=== PATIENT | female | born 1995 | race Caucasian/White ===

== ENCOUNTER 2020-08-24 18:18 | Emergency (ER) | payer BC ==
--- NOTE | 2020-08-24 20:43 | Ultrasound Report ---
PROCEDURE: Duplex Ext Veins Left INDICATIONS: swelling, pain, numbness in leg 3 weeks post op TECHNIQUE: Real-time imaging, as well as color and pulse Doppler interrogation, were performed of the lower extr emity deep veins from the inguinal ligament to the popliteal fossa. COMPARISON: None. FINDINGS: The deep veins are normally compressible, and free of intraluminal thrombus. Color and pu lse Doppler demonstrate normal phasic intraluminal flow. There is normal augmentation response to di stal compression maneuver. 4.3 x 1.6 x 3.8 cm complex fluid collection noted in the anterior left kne e which may represent hematoma. There is a 1.6 x 0.9 x 0.6 cm left popliteal cyst. IMPRESSION: No evidence of deep vein tendinosis involving the left lower extremity. Reviewed by: Ruba Roca MD, PhD on 08/24/2020 8:41 PM PDT Approved by: Ruba Roca MD, PhD on 08/24/2020 8:41 PM PDT Station ID: [id number]
--- NOTE | 2020-08-24 20:57 | ED Physician Documentation ---
History of Present Illness - Stated complaint Stated Complaint: POST OP COMPLICATIONS - Chief complaint Chief Complaint: Ext Problem - History obtained from History obtained from: Patient - Additonal information Additional information: 25-year-old woman with past surgical history of ACL repair 3 weeks ago in [place] presents with left lower leg pain, discoloration of toes and numbness lasting about 45 minutes today. She states that she has had intermittent leg pain over the past week and a half. She also endorses some shortness of breath but she states that it may be related to pain. Denies pleuritic pain, chest pain, cough, calf swelling. She does have mild swelling to the left knee. Denies fevers. She did fly in a plane 8 days ago. Not on oral contraceptive. Non-smoker. Patient is previously healthy and ambulates daily. Review of Systems Ten Systems: 10 systems reviewed and negative Constitutional: denies: Fever Cardiac: denies: Chest pain / pressure Respiratory: reports: Dyspnea. denies: Cough GI: reports: Nausea. denies: Vomiting Musculoskeletal: reports: Extremity pain, Joint pain, Other (knee swelling. no calf swelling) PD PAST MEDICAL HISTORY - Past Medical History Past Medical History: Yes Cardiovascular: None Respiratory: None Endocrine/Autoimmune: None GI: None [employer]ER: None : Chronic bladder infection HEENT: None Psych: None Musculoskeletal: None Derm: None - Past Surgical History Past Surgical History: Yes Ortho: Arthroscopic surgery HEENT: Tonsil/Adenoidectomy - Present Medications Home Medications: Ambulatory Orders Medication Instructions Recorded Confirmed Aspirin [Elk Aspirin] 81 mg PO DAILY 08/24/20 08/24/20 - Allergies Allergies/Adverse Reactions: Allergies Allergy/AdvReac Type Severity Reaction Status Date / Time No Known Drug Allergies Allergy Verified 08/24/20 18:23 - Social History Does the pt smoke?: No Smoking Status: Former smoker Does the pt drink ETOH?: No Does the pt have substance abuse?: No - Immunizations Immunizations are current?: Yes - POLST Patient has POLST: No PD ED PE NORMAL - Vitals Vital signs reviewed: Yes - General General: Alert and oriented X 3, No acute distress, Well developed/nourished - HEENT HEENT: Atraumatic, PERRL, EOMI - Cardiac Cardiac: RRR - Respiratory Respiratory: No respiratory distress, Clear bilaterally - Abdomen Abdomen: Non tender, Non distended - Derm Derm: Normal color, Warm and dry - Extremities Extremities: No deformity, Other (mild L knee swelling. limited ROM L knee. healing well. compartment soft. 2+ BL PT/DP pulses. normal sensation, cap refil, strength to BL LE) Results - Vitals Vitals: Vital Signs - 24 hr 08/24/20 08/24/20 08/24/20 18:24 18:48 20:29 Temperature 36.6 C 37.3 C Heart Rate 70 77 63 Respiratory 14 16 Rate Blood Pressure 122/80 100/56 L O2 Saturation 100 98 99 Oxygen O2 Source Room air PD MEDICAL DECISION MAKING - ED course ED course: 25-year-old woman presents status post surgery and recent flight with concerns for blood clot in the leg. Initial DVT ultrasound negative. Patient counseled that she will need to follow-up in 1 week for repeat ultrasound. Extensive education given about return precautions for pulmonary embolism or DVT. She will follow up with her orthopedist tomorrow. Departure - Departure Disposition: 01 Home, Self Care Clinical Impression: Numbness of toes, Discoloration of skin of toe Condition: Good Instructions: ED MO Comments: You were seen in the emergency department for pain in the leg, numbness, and discoloration. Your ultrasound for blood clots showed no findings, but you will need to have a follow-up ultrasound in 1 week. Please return to the emergency department if you experience any new or worsening symptoms or have other concerns. Call your orthopedist tomorrow to schedule a phone consult. [place] In the meantime you can go to the [facility] At [address] [place], [place], [address]. Phone number [phone]. PT NAME: CARMEN CARNEY MR#: [id number] REG ER/ED AGE: 25 CI DT/TM: [birth year] PCP: Provider,Other : 1995 ATT: SEX: F ORD: Franci mora MD EXAM: [id number] US/VENL ([id number]) PROCEDURE: Duplex Ext Veins Left INDICATIONS: swelling, pain, numbness in leg 3 weeks post op TECHNIQUE: Real-time imaging, as well as color and pulse Doppler interrogation, were performed of the lower extremity deep veins from the inguinal ligament to the popliteal fossa. COMPARISON: None. FINDINGS: The deep veins are normally compressible, and free of intraluminal thrombus. Color and pulse Doppler demonstrate normal phasic intraluminal flow. There is normal augmentation response to distal compression maneuver. 4.3 x 1.6 x 3.8 cm complex fluid collection noted in the anterior left knee which may represent hematoma. There is a 1.6 x 0.9 x 0.6 cm left popliteal cyst. IMPRESSION: No evidence of deep vein tendinosis involving the left lower extremity. Reviewed by: Ruba Roca MD, PhD on 08/24/2020 8:41 PM PDT Approved by: Ruba Roca MD, PhD on 08/24/2020 8:41 PM PDT Station ID: [id number] Operations Research Manager: MYA Reading Radiologist: Ruba Roca MD Releasing Radiologist: Ruba Roca MD Released Date Time: 08/24/202040
[2020-08-24 21:08] VITALS: BP 108/60
== END 2020-08-24 21:06 | disposition home or self-care (01) ==
LOC: ED 18:18
DX: M79.662 Pain in left lower leg (principal); R20.0 Anesthesia of skin; R23.8 Other skin changes; Z87.891 Personal history of nicotine dependence; Z98.890 Other specified postprocedural states
CPT/HCPCS: 99284